=== PATIENT | female | born 1985 | race Caucasian/White ===

== ENCOUNTER 2017-11-25 11:58 | Day surgery (SDC) | payer OTHER, MEDICAID, SELFPAY ==
[2017-11-09 16:05] VITALS: BMI 26.6
[2017-11-25] VITALS (7 sets, daily range): BP systolic 96–126; BP diastolic 56–83; PULSE 70–87; RESP 11–18; TEMP 36.3–36.9; O2SAT 91–100; BMI 26.6
[2017-11-25] MEDS: LACTATED RINGERS 1,000 ML 100 ML IV (12:35)
[2017-11-25] MEDS: CEFOTETAN 2 GM/50 ML PIGGYBACK IV (13:52)
--- NOTE | 2017-11-25 14:18 | SUR.OPER ---
Lithotomy on padded OR bed, head on pillow, arms secured on padded arm boards at <90 degrees abduction. Legs secured in padded yellow fins stirrups.
[2017-11-25] MEDS: BUPIVACAINE 0.25% W/ EPI VIAL 50 ML INJ (14:25)
--- NOTE | 2017-11-25 14:34 | PM.GYNOP.1 ---
Procedure: Procedures Operation Date: 11/25/17 13:30 Actual Procedures Side Surgeon p Laparoscopic Tubal Occlusion Bilateral Randy Sampson MD Indications: Multiparity desires sterilization Surgeon: Randy Sampson Anesthesia Type: General Operative Notes Findings: Normal uterus tubes and ovaries Closure Type: primary Specimen(s): none Estimated blood loss (mL): 25 Blood products transfused: none Procedure in detail: Patient was placed supine upon the operating table and anesthetized. She was then placed in the dorsal lithotomy position and examined under anesthesia. Under anesthesia she is felt to have an anterior uterus no masses all of any kind. Patient was draped. Usual fashion. Speculum was set in place and the anterior lip of the cervix grasped with a toothed tenaculum. The dolphin-nose forceps was used to removed the Mirena IUD. The uterine cervix calibrated to Hegar 8. And a Zumi insufflation cannula was placed without difficulty. The tenaculum and speculum removed. Closer changed. Attention was turned to the abdomen. Approximately 10 cc of 0.25% Marcaine and 1 to [id number] epinephrine were injected into the umbilicus. A sharp knife incision was made. The Veress needle was placed 3rd through. Approximately 5.5 L of carbon dioxide gas were insufflated to a final resting pressure of 15 cm of water. The Veress needle was withdrawn and a [address]. The laparoscoped was placed there through. Patient had normal uterus normal tubes and ovaries. The right tube was grasped at the isthmic ampullary junction infiltrated in three places with through and through urbano two infinite impedance. Similar procedure was performed on the left side. No bleeding points were seen. All carbon dioxide gas was allowed to exit the abdomen. The incision was closed with a deep 0 Vicryl and then with a running horizontal mattress three 0 Vicryl. Skin was further approximated with Steri-Strips. The Zumi insufflation cannula was removed. The patient was taken to the recovery room in satisfactory condition. Complications: none Post-operative Condition: stable Disposition: PACU Plan for aftercare: Chart to home
--- NOTE | 2017-11-25 14:39 | P.OP_ITS ---
Procedure: Procedures Operation Date: 11/25/17 13:30 Actual Procedures Side Surgeon p Laparoscopic Tubal Occlusion Bilateral Randy Sampson MD Indications: Multiparity desires sterilization Surgeon: Randy Sampson Anesthesia Type: General Operative Notes Findings: Normal uterus tubes and ovaries Closure Type: primary Specimen(s): none Estimated blood loss (mL): 25 Blood products transfused: none Procedure in detail: Patient was placed supine upon the operating table and anesthetized. She was then placed in the dorsal lithotomy position and examined under anesthesia. Under anesthesia she is felt to have an anterior uterus no masses all of any kind. Patient was draped. Usual fashion. Speculum was set in place and the anterior lip of the cervix grasped with a toothed tenaculum. The dolphin-nose forceps was used to removed the Mirena IUD. The uterine cervix calibrated to Hegar 8. And a Zumi insufflation cannula was placed without difficulty. The tenaculum and speculum removed. Closer changed. Attention was turned to the abdomen. Approximately 10 cc of 0.25% Marcaine and 1 to [id number] epinephrine were injected into the umbilicus. A sharp knife incision was made. The Veress needle was placed 3rd through. Approximately 5.5 L of carbon dioxide gas were insufflated to a final resting pressure of 15 cm of water. The Veress needle was withdrawn and a 12 [address] and [address]. The laparoscoped was placed there through. Patient had normal uterus normal tubes and ovaries. The right tube was grasped at the isthmic ampullary junction infiltrated in three places with through and through urbano two infinite impedance. Similar procedure was performed on the left side. No bleeding points were seen. All carbon dioxide gas was allowed to exit the abdomen. The incision was closed with a deep 0 Vicryl and then with a running horizontal mattress three 0 Vicryl. Skin was further approximated with Steri- Strips. The Zumi insufflation cannula was removed. The patient was taken to the recovery room in satisfactory condition. Complications: none Post-operative Condition: stable Disposition: PACU Plan for aftercare: Chart to home
[2017-11-25] MEDS: OXYCODONE/ACETAMINOPHEN 5/325 TABLET 1 TAB PO (14:59)
[2017-11-25] MEDS: HYDROMORPHONE 2 MG INJ 0.5 MG IV (15:00)
== END 2017-11-25 15:32 | disposition home or self-care (01) ==
PROC: (CPT 58671; principal; 2017-11-25 13:30)
DX: Z30.2 Encounter for sterilization (principal); Z87.891 Personal history of nicotine dependence; F41.9 Anxiety disorder, unspecified
CPT/HCPCS: 58670; J0330; J1100; J1170; J2250; J2405; J2704; J3010

== ENCOUNTER 2017-12-30 09:31 | Emergency (ER) | payer OTHER, MEDICAID, SELFPAY ==
[2017-12-30 09:35] VITALS: BP 129/64; PULSE 83; RESP 20; TEMP 36.1; O2SAT 100
[2017-12-30] MEDS: ONDANSETRON 4 MG/2 ML INJ IV (09:56)
[2017-12-30] MEDS: PANTOPRAZOLE 40 MG VIAL IV (09:56)
[2017-12-30] MEDS: SODIUM CHLORIDE 0.9% 1,000 ML 1000 ML IV ×2 (09:56→10:52)
[2017-12-30 09:59] LABS: Add Manual Diff / Slide Review NO; Basophils Percent Auto 0.4 % (0-2); Eosinophils Percent Auto 0.1 % (2-4); Hematocrit 43.9 % (36-46); Hemoglobin 14.8 g/dL (12.0-16.0); Lymphocytes Percent Auto 9.2 % (25-40); Mean Corpuscular HGB Conc 33.7 % (30-36); Mean Corpuscular Hemoglobin 31.6 PG (26-34); Mean Corpuscular Volume 93.7 fL (80-100); Monocytes Percent Auto 3.3 % (3-14); Neutrophils Absolute Auto 9700 /uL (3000-5900); Platelet Count 204 X10^3/uL (150-400); Red Blood Cell Count 4.68 X10^6/uL (4.0-5.2); Red Cell Distribution Width 12.8 % (11.6-14.8); White Blood Cell Count 11.1 X10^3/uL (4.5-11.0)
[2017-12-30 10:13] LABS: Alanine Aminotransferase 49 IU/L (9-52); Albumin Globulin Ratio 1.5 (1.0-2.8); Alkaline Phosphatase 51 U/L (38-126); Aspartate Aminotransferase 61 IU/L (14-36); BUN Creatinine Ratio 28.3 (6-22); Bilirubin Total 0.5 mg/dL (0.2-1.3); Blood Urea Nitrogen 17 mg/dL (7-17); Calcium 9.5 mg/dL (8.4-10.2); Carbon Dioxide 19 mmol/L (22-32); Chloride 107 mmol/L (98-107); Estimated Glomerular Filt Rate > 60.0 mL/min (>60); Globulin 3.3 g/dL (1.7-4.1); Glucose 57 mg/dL (70-100); HEMOLYSIS < 15 (0-50); Potassium 3.9 mmol/L (3.4-5.1); Sodium 148 mmol/L (137-145); Total Protein 8.3 g/dL (6.3-8.2)
[2017-12-30] MEDS: DEXTROSE 50 % IN WATER 25 GM/50 ML SYRINGE IV (10:26)
[2017-12-30 10:43] VITALS: BP 93/48; PULSE 73; RESP 16; O2SAT 100
--- NOTE | 2017-12-30 10:51 | ED_ITS ---
HPI - Nausea/Vomiting/Diarrhea General Chief complaint: Nausea/Vomiting/Diarrhea Stated complaint: Vomiting Time Seen by Provider: 12/30/17 09:32 Source: patient and EMS Mode of arrival: EMS Limitations: no limitations History of Present Illness HPI Narrative: 32-year-old female, former smoker with history of neurofibromatosis presents to the emergency department by EMS for evaluation of nausea, vomiting and abdominal pain after heavy alcohol consumption last night. She denies any fever or chills. She denies any diarrhea. She denies any blood in her vomit. She does not routinely drink and had significantly more last night in which she is used to. MD complaint: nausea, vomiting and abdominal pain Onset (ago): hour(s) Description of Vomiting: food contents Description of Diarrhea: none Associated Abdominal Pain: Yes Location of pain: epigastric Quality: cramping Pain Consistency: constant Relieving factors: none Exacerbating factors: none Context: alcohol abuse Associated symptoms: loss of appetite and nausea/vomiting Related Data Home Medications Medication Instructions Recorded Confirmed malathion 1 applic TOPICAL DIRECTED 11/09/17 11/21/17 beclomethasone dipropionate 80 mcg INHALATION BID 11/21/17 11/21/17 mcg/actuation aerosol inhaler Previous Rx's Medication Instructions Recorded albuterol sulfate HFA 90 1 puff INHALATION Q4-6H PRN #18 09/16/17 mcg/actuation aerosol inhaler gram oxycodone-acetaminophen [Percocet] 2 tab PO Q4-6H PRN #20 tab 11/25/17 Allergies Allergy/AdvReac Type Severity Reaction Status Date / Time No Known Drug Allergies Allergy Verified 11/25/17 12:22 Review of Systems Review of Systems All systems reviewed & are unremarkable except as noted in HPI and below Constitutional Denies chills, Denies fever(s), Denies lethargy and Denies weakness Eyes Denies change in vision, Denies eye discharge, Denies irritation and Denies loss of vision ENT Ears, Nose, Mouth, and Throat: Denies change in voice, Denies neck pain and Denies sore throat Cardiovascular Denies chest pain, Denies irregular heart rhythm, Denies lightheadedness, Denies palpitations, Denies dyspnea, Denies dyspnea on exertion and Denies orthopnea Respiratory Denies cough, Denies dyspnea, Denies dyspnea on exertion and Denies wheezing Gastrointestinal Gastrointestinal: Reports abdominal pain, Denies change in bowel habits, Denies diarrhea, Reports nausea and Reports vomiting Genitourinary Denies hematuria, Denies flank pain, Denies urinary incontinence and Denies urinary urgency Musculoskeletal Denies neck pain Integumentary/Breasts Denies pruritus, Denies erythema, Denies rash and Denies wounds Neurologic Denies confusion, Denies loss of vision and Denies weakness Psychiatric Denies anxiety, Denies confusion, Denies depression, Denies homicidal ideation and Denies suicidal ideation Endocrine Denies palpitations Hematologic/Lymphatic Denies easy bruising Allergic/Immunologic Denies wheezing [facility] Medical History Anxiety (Acute) 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) History of headache (Acute) Hypertension during (Acute) IUD (intrauterine device) in place (Acute) Recurrent sinus infections (Acute) Asthma (Chronic) Chronic headaches (Chronic) Neurofibromatosis, type 1 (Chronic) Gestational hypertension (Resolved) Schwannoma (Resolved) Surgical History History of incision and drainage (Acute) History of surgery (Resolved ~1991) History of surgery (Resolved ~1989) History of surgery (Resolved ~1998) History of surgery (Resolved ~1999) History of surgery (Resolved 2010) History of surgical procedure on mouth (Resolved ~1993) Family History Mother Hypertension Social History household members: significant other Smoking Status: Former smoker Exam Narrative Exam Narrative: 32-year-old female, obviously uncomfortable, clutching her upper abdomen Initial Vital Signs Initial Vital Signs: Vital Signs Temperature 97.0 F L 12/30/17 09:35 Pulse Rate 83 12/30/17 09:35 Respiratory Rate 20 12/30/17 09:35 Blood Pressure 129/64 12/30/17 09:35 Pulse Oximetry 100 12/30/17 09:35 Const General: cooperative, well developed and acute distress Nutritional Appearance: well nourished Orientation: alert, awake, oriented x3 and not confused HENMT Head: normocephalic and atraumatic Ears: external ears normal and TM's normal bilaterally Nose: external nose normal and No nasal discharge Face and sinus: sinuses nontender, face symmetric, no sinus tenderness and No dry mucous membranes Mouth: oral mucosae normal and moist mucous membranes Teeth and gingiva: dentition normal Throat: tonsils normal and uvula midline Eyes General: appearance normal, both eyes and all related structures Eyelids: eyelids normal Conjunctivae: conjunctivae normal Sclera: sclerae normal Pupils: PERRL EOM: EOM intact bilaterally Neck Neck: normal visual inspection, trachea midline, No lymphadenopathy, No midline deformity and No JVD Lymphatic: No lymphedema Chest Chest: normal inspection of the chest Resp Effort & Inspection: normal respiratory effort, able to speak in complete sentences, no respiratory distress and no use of accessory muscles Auscultation: clear to auscultation bilaterally, no rales, no rhonchi and no wheezes Cardio Rate: regular rate Rhythm: regular rhythm Heart Sounds: no click, no gallops, no murmurs and no rubs Pulses: normal peripheral pulses GI Inspection: non-distended Palpation: soft, no hepatosplenomegaly, No guarding, No pulsatile mass and tender (To palpation in epigastrium) Auscultation: normal bowel sounds Back/Spine/Pelvis Back: No CVA tenderness Cervical Spine: cervical ROM normal and No pain with cervical ROM Thoracic/Lumbar Spine: thoracic and lumbar spine normal to inspection Skin General: no rashes or lesions noted, No jaundice and No petechiae Neuro General: alert, oriented x3, gait normal and no focal motor deficits Speech: speech normal Extrem General: full ROM, no clubbing, cyanosis or edema, no pedal edema and no calf tenderness Psych Appearance: well kempt Mental Status: mental status grossly normal Attitude: cooperative Thought Content: normal and suicidality Judgment: judgment good Course Course Narrative: Patient feeling tremendous improvement after above-stated therapies. Orders Ordered: ED Orders 12/30/17 09:45 Complete Blood Count AUTO DIFF Stat Comprehensive Metabolic Panel Stat Sodium Chloride (Normal Saline 0.9%) 1,000 mls @ 1,000 mls/hr IV BOLUS ONE Stop: 12/30/17 11:50 Last Admin: 12/30/17 10:52 Dose: 1,000 mls/hr Discontinued Medications Dextrose (D50w) 12.5 gm IV NOW ONE Stop: 12/30/17 10:25 Last Admin: 12/30/17 10:26 Dose: 12.5 gm Sodium Chloride (Normal Saline 0.9%) 1,000 mls @ 1,000 mls/hr IV BOLUS ONE Stop: 12/30/17 10:43 Last Infusion: 12/30/17 10:46 Dose: 0 mls/hr Admin: 12/30/17 09:56 Dose: 1,000 mls/hr Ondansetron HCl (Zofran) 4 mg IV NOW ONE Stop: 12/30/17 09:45 Last Admin: 12/30/17 09:56 Dose: 4 mg Pantoprazole Sodium (Protonix) 40 mg IV NOW ONE Stop: 12/30/17 09:45 Last Admin: 12/30/17 09:56 Dose: 40 mg Vital Signs - 8 hr 12/30/17 09:35 12/30/17 10:43 Temperature 97.0 F L Pulse Rate 83 73 Respiratory Rate 20 16 Blood Pressure 129/64 Blood Pressure [Right Arm] 93/48 L Pulse Oximetry 100 100 MDM - Nausea/Vomiting/Diarrhea Differential Diagnosis Likely drug-induced nausea and vomiting and dehydration Medical Records Attestation: I reviewed the patient's medical records. Lab Data Attestation: I reviewed the patient's lab results. Result diagrams: 12/30/17 09:45 12/30/17 09:45 Lab Results 12/30/17 12/30/17 Range/Units 09:45 09:45 WBC 11.1 H (4.5-11.0) X10^3/uL RBC 4.68 (4.0-5.2) X10^6/uL Hgb 14.8 (12.0-16.0) g/dL Hct 43.9 (36-46) % MCV 93.7 (80-100) fL MCH 31.6 (26-34) PG MCHC 33.7 (30-36) % RDW 12.8 (11.6-14.8) % Plt Count 204 (150-400) X10^3/uL Neut % (Auto) 87.0 H (50-75) % Lymph % (Auto) 9.2 L (25-40) % Grant % (Auto) 3.3 (3-14) % Eos % (Auto) 0.1 L (2-4) % Baso % (Auto) 0.4 (0-2) % Neut # (Auto) 9700 H (6129-0129) /uL Sodium 148 H (137-145) mmol/L Potassium 3.9 (3.4-5.1) mmol/L Chloride 107 (98-107) mmol/L Carbon Dioxide 19 L (22-32) mmol/L BUN 17 (7-17) mg/dL Creatinine 0.60 (0.52-1.04) mg/dL Estimated GFR > 60.0 (>60) mL/min BUN/Creatinine Ratio 28.3 H (6-22) Glucose 57 L (70-100) mg/dL Calcium 9.5 (8.4-10.2) mg/dL Total Bilirubin 0.5 (0.2-1.3) mg/dL AST 61 H (14-36) IU/L ALT 49 (9-52) IU/L Alkaline Phosphatase 51 (38-126) U/L Total Protein 8.3 H (6.3-8.2) g/dL Albumin 5.0 (3.5-5.0) g/dL Globulin 3.3 (1.7-4.1) g/dL Albumin/Globulin Ratio 1.5 (1.0-2.8) Point of Care Testing Glucose POC 103 Discharge Plan Departure Patient Disposition: Home Clinical Impression: Acute dehydration, Gastritis, Vomiting Instructions: DI for Alcoholic Gastritis Activity Restrictions/Additional Instructions: 1. Drink plenty of fluids with frequent small sips. 2. For the next 24 hours a clear liquid diet is advised. After that please employ a brat diet which would include bananas, rice, apples, toast. 3. Please take medications as directed. Your prescription has been electronically submitted to the [facility] in [place] at your request 4. Please follow-up with your doctor in the next 1-2 days. Call the office for an appointment. 5. Please return to the emergency Department for any worsening or persistent symptoms, such as increasing pain or fever. Prescriptions: No Action albuterol sulfate [Ventolin HFA] 90 mcg/actuation HFA aerosol inhaler 1 puff INHALATION Q4-6H PRN (Reason: shortness of breath or wheezing) Qty: 18 RF: 3 beclomethasone dipropionate 80 mcg/actuation aerosol INHALATION BID RF: 0 malathion 0.5 % Lotion 1 applic TOPICAL DIRECTED RF: 0 oxycodone-acetaminophen [Percocet] 5-325 mg tablet 2 tab PO Q4-6H PRN (Reason: pain) Qty: 20 RF: 0
--- NOTE | 2017-12-30 10:51 | PC.NURSE ---
Ice chips and a 2nd liter of NS
--- NOTE | 2017-12-30 11:36 | PC.NURSE ---
Pt started with ice chips w/o emesis. Had gingerale and crackers without emesis. Will dc home after IV fluids in
[2017-12-30 12:05] VITALS: BP 104/71; PULSE 71; RESP 20; O2SAT 98
== END 2017-12-30 12:06 | disposition home or self-care (01) ==
PROVIDERS: Emergency Provider Emergency Medicine
DX: K29.70 Gastritis, unspecified, without bleeding (principal); E86.0 Dehydration; R11.10 Vomiting, unspecified
CPT/HCPCS: 36591; 80053; 82962; 85025; 96361; 96374; 96375; 99283; 99284; C9113; J2405

== ENCOUNTER → 2018-01-18 13:54 | Outpatient (CLI) | payer OTHER, MEDICAID, SELFPAY | PROVIDERS: Visit Provider Physician Assistant | DX: J36 Peritonsillar abscess (principal) | CPT/HCPCS: 87070; 87077; 87147 ==

== ENCOUNTER 2018-10-22 17:14 | Emergency (ER) | payer OTHER, MEDICAID, SELFPAY ==
[2018-10-22 17:27] VITALS: BP 135/75; PULSE 86; RESP 20; TEMP 36.8; O2SAT 98
[2018-10-22 17:46] LABS: Amorphous Sediment Urine 1+; Bacteria Urine Few (2-10); RBC Urine 10-30/HPF (0-5/HPF); WBC Urine 30-100/HPF (0-5/HPF)
[2018-10-22 17:47] LABS: Culture Indicated Urine Specimen Cultured; Squamous Epithelial Cell Urine 1-5 /HPF (0-5/HPF)
[2018-10-22] MEDS: PHENAZOPYRIDINE 100 MG TABLET 200 MG PO (18:00)
[2018-10-22 18:25] VITALS: BP 124/68; PULSE 81; RESP 16; O2SAT 98
--- NOTE | 2018-10-22 18:41 | ED.FEMALEGU ---
HPI - Female Genitourinary <JENN Briscoe - Last Filed: 10/22/18 19:29> General Chief complaint: Urogenital-Female Stated complaint: thinks she has a UTI Time Seen by Provider: 10/22/18 17:28 Source: patient Mode of arrival: ambulatory Limitations: no limitations History of Present Illness HPI Narrative: This is a 33 year old female, nonsmoker with history of neurofibromaptosis, asthma, gestational hypertension, HSV type 2, s/p BTL present today with symptoms of UTI. She reports onset of dysuria and frequency started one week ago. She reports her urinary symptoms got worse yesterday with burning on urination, frequency, chills, odorous urine, hematuria, suprapubic pain and general not feeling well. She denies fever, back pain, vaginal discharge or lesions. She denies previous UTI during adulthood. Related Data Home Medications Medication Instructions Recorded Confirmed malathion 1 applic TOPICAL DIRECTED 11/09/17 01/18/18 beclomethasone dipropionate 80 mcg INHALATION BID 11/21/17 01/18/18 mcg/actuation aerosol inhaler Previous Rx's Medication Instructions Recorded oxycodone-acetaminophen [Percocet] 2 tab PO Q4-6H PRN #20 tab 11/25/17 albuterol sulfate HFA 90 1 puff INHALATION Q4-6H PRN #18 08/03/18 mcg/actuation aerosol inhaler gram sulfamethoxazole-trimethoprim 1 tab PO BID #10 tab 10/22/18 Allergies Allergy/AdvReac Type Severity Reaction Status Date / Time No Known Drug Allergies Allergy Verified 01/18/18 09:40 Review of Systems <JENN Briscoe - Last Filed: 10/22/18 19:29> Review of Systems GENERAL: See HPI HEENT: Denies sinus pain, ear pain, sore throat, difficulty swallowing, dizziness. RESPIRATORY: Denies dyspnea, cough, wheezing, hemoptysis, sputum. CARDIOVASCULAR: Denies chest pain, palpitations, orthopnea, edema, GASTROINTESTINAL: Denies nausea, vomiting, abdominal pain, diarrhea, constipation, melena. : See HPI MUSCULOSKELETAL: denies weakness, joint pain, or bony pain SKIN: Denies rash, skin lesions, or other NEUROLOGIC: Denies weakness, headache, numbness, change in speech, confusion, seizures, incoordination. PSYCHIATRIC: No concerning psychosocial issues. 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) History of headache (Acute) Hypertension during (Acute) IUD (intrauterine device) in place (Acute) Recurrent sinus infections (Acute) Asthma (Chronic) Chronic headaches (Chronic) Neurofibromatosis, type 1 (Chronic) Gestational hypertension (Resolved) Schwannoma (Resolved) Surgical History History of incision and drainage (Acute) History of surgery (Resolved ~1991) History of surgery (Resolved ~1989) History of surgery (Resolved ~1998) History of surgery (Resolved ~1999) History of surgery (Resolved 2010) History of surgical procedure on mouth (Resolved ~1993) Family History (System 01/18/18 @ 09:40 by Taryn [place]) Mother Hypertension Social History (System 01/18/18 @ 09:40 by Taryn [place]) household members: significant other Smoking Status: Former smoker Family History Mother Hypertension Social History household members: significant other Smoking Status: Former smoker Exam <JENN Briscoe - Last Filed: 10/22/18 19:29> Narrative Exam Narrative: GENERAL: This is a well-nourished, well-developed patient, in mild distress. HEAD: Atraumatic. Normocephalic. No temporal or scalp tenderness. EYES: Pupils equal round and reactive. Extraocular motions intact. No scleral icterus. No injection or drainage. ENT: Nose without bleeding, purulent drainage or septal hematoma. Throat without erythema, tonsillar hypertrophy or exudate. Uvula midline. Airway patent. NECK: Trachea midline. No JVD or lymphadenopathy. Supple, nontender, no meningeal signs. CARDIOVASCULAR: Regular rate and rhythm without murmurs, gallops, or rubs. RESPIRATORY: Clear to auscultation. Breath sounds equal bilaterally. No wheezes, rales, or rhonchi. GASTROINTESTINAL: Abdomen soft, non-tender, nondistended. No hepato-splenomegaly, or palpable masses. No guarding. EXTREMITIES: No clubbing, cyanosis, or edema. No joint tenderness, effusion, or edema noted. BACK: Nontender without deformity or crepitance. No flank tenderness. NEURO: AOx3. SKIN: No rash or erythema. Initial Vital Signs Initial Vital Signs: Vital Signs Temperature 98.2 F 10/22/18 17:27 Pulse Rate 86 10/22/18 17:27 Respiratory Rate 20 10/22/18 17:27 Blood Pressure 135/75 10/22/18 17:27 Pulse Oximetry 98 10/22/18 17:27 <Christy Headley DO - Last Filed: 10/23/18 02:33> Initial Vital Signs Initial Vital Signs: Vital Signs Temperature 98.2 F 10/22/18 17:27 Pulse Rate 86 10/22/18 17:27 Respiratory Rate 20 10/22/18 17:27 Blood Pressure 135/75 10/22/18 17:27 Pulse Oximetry 98 10/22/18 17:27 Course <JENN Briscoe - Last Filed: 10/22/18 19:29> Orders Ordered: Discontinued Medications Phenazopyridine HCl (Pyridium) 200 mg PO NOW ONE Stop: 10/22/18 17:55 Last Admin: 10/22/18 18:00 Dose: 200 mg Trimethoprim/Sulfamethoxazole (Bactrim Ds) 1 tab PO NOW ONE Stop: 10/22/18 18:45 Last Admin: 10/22/18 18:48 Dose: 1 tab Vital Signs - 8 hr 10/22/18 17:27 10/22/18 18:25 Temperature 98.2 F Pulse Rate 86 81 Respiratory Rate 20 16 Blood Pressure 135/75 Blood Pressure [Left Arm] 124/68 Pulse Oximetry 98 98 <Christy Headley DO - Last Filed: 10/23/18 02:33> Orders Ordered: Discontinued Medications Phenazopyridine HCl (Pyridium) 200 mg PO NOW ONE Stop: 10/22/18 17:55 Last Admin: 10/22/18 18:00 Dose: 200 mg Trimethoprim/Sulfamethoxazole (Bactrim Ds) 1 tab PO NOW ONE Stop: 10/22/18 18:45 Last Admin: 10/22/18 18:48 Dose: 1 tab Vital Signs - 8 hr 10/22/18 17:27 10/22/18 18:25 Temperature 98.2 F Pulse Rate 86 81 Respiratory Rate 20 16 Blood Pressure 135/75 Blood Pressure [Left Arm] 124/68 Pulse Oximetry 98 98 MDM - Female Genitourinary <MICHEAL Briscoe-BC - Last Filed: 10/22/18 19:29> Lab Data Lab Results 10/22/18 Range/Units 17:31 Urine RBC 10-30/hpf H (0-5/HPF) Urine WBC 30-100/hpf H (0-5/HPF) Ur Squamous Epith Cells 1-5 /hpf (0-5/HPF) Amorphous Sediment 1+ Urine Bacteria Few (2-10) H (None) Ur Culture Indicated? Specimen cultured Urine Dip Bedside Urine Glucose Negative Bedside Urine Bilirubin - Negative Bedside Urine Ketone - Negative Urine Specific [place] 1.025 Bedside Urine Occult Blood + Bedside Urine Protein +/- 15 Bedside Urine Urobilinogen +/- 1mg Bedside Urine Nitrite - Negative Bedside Urine Leukocytes + 70 Esterase MDM Narrative Medical decision making narrative: The patient's urine shows blood, protein, leukocytes. Microscopic tests shows RBC, WBC and few bacteria. Urine culture is pending. The patient denies flank pain, fever, vomiting. She has history of bilateral tubal ligation and denies signs of vaginal infection. Pt was medicated with Pyridium for urinary discomfort here in ER. Since this is her first UTI during adulthood, will treat her as uncomplicated UTI with Septra. We discussed about worsening symptoms and signs of kidney infection such as nausea, vomiting, flank pain, fever. The patient was instructed to f/u with PCP in a few days and to return to ER with worsening symptoms. The patient was also to take OTC Tyelenol or Ibuprofen for discomfort or fever as needed. <Christy Headley DO - Last Filed: 10/23/18 02:33> Lab Data Lab Results 10/22/18 Range/Units 17:31 Urine RBC 10-30/hpf H (0-5/HPF) Urine WBC 30-100/hpf H (0-5/HPF) Ur Squamous Epith Cells 1-5 /hpf (0-5/HPF) Amorphous Sediment 1+ Urine Bacteria Few (2-10) H (None) Ur Culture Indicated? Specimen cultured Urine Dip Bedside Urine Glucose Negative Bedside Urine Bilirubin - Negative Bedside Urine Ketone - Negative Urine Specific [place] 1.025 Bedside Urine Occult Blood + Bedside Urine Protein +/- 15 Bedside Urine Urobilinogen +/- 1mg Bedside Urine Nitrite - Negative Bedside Urine Leukocytes + 70 Esterase Discharge Plan Departure Patient Disposition: Home Clinical Impression: Urinary tract infection Qualifiers: Urinary tract infection type: site unspecified Hematuria presence: with hematuria Qualified Code(s): N39.0 - Urinary tract infection, site not specified Discharge Date/Time: 10/22/18 19:06 Interventions: ED Discharge Assessment Last Done: 10/22/18 19:06 Instructions: DI for Urinary Tract Infection (UTI) Activity Restrictions/Additional Instructions: Your urine today suspicious for urinary tract infection. We have a urine culture pending. Results will take 48-72 hours. Please monitor for fever, inability keep down fluids etc. Please follow up with primary care provider. Please come back to the ER for any acute concerns. Prescriptions: New sulfamethoxazole-trimethoprim 800-160 mg tablet 1 tab PO BID Qty: 10 RF: 0 No Action albuterol sulfate [Ventolin HFA] 90 mcg/actuation HFA aerosol inhaler 1 puff INHALATION Q4-6H PRN (Reason: shortness of breath or wheezing) Qty: 18 RF: 0 beclomethasone dipropionate 80 mcg/actuation aerosol INHALATION BID RF: 0 malathion 0.5 % Lotion 1 applic TOPICAL DIRECTED RF: 0 oxycodone-acetaminophen [Percocet] 5-325 mg tablet 2 tab PO Q4-6H PRN (Reason: pain) Qty: 20 RF: 0 <Christy Headley, - Last Filed: 10/23/18 02:33> [place] [facility] Attending Sam Attestation: I was immediately available in the department for consultation. Documentation has been reviewed. I agree with assessment and plan.
[2018-10-22] MEDS: TRIMETH/SULFA 160/800 (DS) TABLET 1 TAB PO (18:48)
--- NOTE | 2018-10-22 18:49 | PC.NURSE ---
Patient eating crackers and drinking juice. Medicated with first dose antibiotics per verbal order. Awaiting dispo.
== END 2018-10-22 19:06 | disposition home or self-care (01) ==
PROVIDERS: Emergency Provider Nurse Practitioner Family
DX: N39.0 Urinary tract infection, site not specified (principal)
CPT/HCPCS: 81003; 81015; 87086; 99282; 99283

== ENCOUNTER → 2019-02-13 14:39 | Outpatient (CLI) | payer OTHER, MEDICAID, SELFPAY ==
[2019-02-13 16:20] LABS: HIV 1 & 2 Ab/Ag 4th Gen Combo NEGATIVE (NEGATIVE); Hep C Virus Ab w/Reflex Quant NEGATIVE s/c (NEGATIVE)
[2019-02-15 15:10] LABS: HSV 1 IgM Screen Negative (Negative); HSV 2 IgM Screen Negative (Negative)
[2019-02-15 19:37] LABS: RPR Screen Nonreactive (Nonreactive)
== END ==
PROVIDERS: Family Provider Family Medicine
DX: Z11.3 Encounter for screening for infections with a predominantly sexual mode of transmission (principal)
CPT/HCPCS: 36415; 86592; 86695; 86696; 86803; 87389

== ENCOUNTER 2021-08-28 17:54 | Emergency (ER) | payer OTHER, MEDICAID, SELFPAY ==
[2021-08-28 17:55] VITALS: BP 167/70; PULSE 60; RESP 16; TEMP 36.4; O2SAT 100; BMI 28.3
--- NOTE | 2021-08-28 18:06 | PC.NURSE ---
Patient speaking in full sentences. Using rescue inhaler more frequent. Sudden onset of SOB in last 30 min. Resp even and unlabored
--- NOTE | 2021-08-28 18:55 | DI.RAD.S_ITS ---
PROCEDURE: XR CHEST 2V INDICATIONS: SOB, wheezing, asthma TECHNIQUE: 2 views of the chest were acquired. COMPARISON: Located Within [facility], , CHEST 2 VIEW, 07/01/2014, 11:25. FINDINGS: Surgical changes and devices: None. Lungs and pleura: Increased bronchovascular markings in bilateral hilar region are seen with mild bronchial wall thickening. No definite focal infiltrate. No pleural effusions or pneumothorax. Mediastinum: Mediastinal contours are normal. Heart size is normal. Bones and chest wall: No suspicious bony abnormalities. Soft tissues appear unremarkable. IMPRESSION: Finding is suggestive of reactive airway disease such as bronchitis or asthma. No focal infiltrate, pleural effusion or pneumothorax. Dictated by: Humble Mendez M.D. on 08/28/2021 at 19:15 Approved by: Humble Mendez M.D. on 08/28/2021 at 19:20
== END 2021-08-28 21:50 | disposition left against medical advice (07) ==
PROVIDERS: Emergency Provider Emergency Medicine; Family Provider Family Medicine; PCP Nurse Practitioner Family
DX: R06.02 Shortness of breath (principal)
CPT/HCPCS: 71046; 99281

== ENCOUNTER → 2022-09-01 09:59 | Outpatient (CLI) | payer OTHER, MEDICAID, SELFPAY ==
[2022-09-01 11:21] LABS: Hematocrit 39.8 % (36-46); Hemoglobin 13.5 g/dL (12.0-16.0); Mean Corpuscular HGB Conc 33.9 % (30-36); Mean Corpuscular Hemoglobin 30.8 PG (26-34); Mean Corpuscular Volume 90.8 fL (80-100); Platelet Count 204 X10^3/uL (150-400); Red Blood Cell Count 4.38 X10^6/uL (4.0-5.2); Red Cell Distribution Width 13.1 % (11.6-14.8); White Blood Cell Count 4.4 X10^3/uL (4.5-11.0)
[2022-09-01 11:55] LABS: Alanine Aminotransferase 20 IU/L (<35); Albumin 4.3 g/dL (3.5-5.0); Albumin Globulin Ratio 1.3 (1.0-2.8); Alkaline Phosphatase 45 U/L (38-126); Aspartate Aminotransferase 25 IU/L (14-36); BUN Creatinine Ratio 24.1 (6-22); Bilirubin Total 0.3 mg/dL (0.2-1.3); Blood Urea Nitrogen 13 mg/dL (7-17); Carbon Dioxide 26 mmol/L (22-32); Chloride 102 mmol/L (98-107); Cholesterol 194 mg/dL (140-199); Estimated Glomerular Filt Rate > 60 mL/min (>60); Globulin 3.2 g/dL (1.7-4.1); Glucose 97 mg/dL (70-100); HDL Cholesterol 73 mg/dL (40-60); HEMOLYSIS < 15 (0-50); LDL Cholesterol Calculated 110 mg/dL (<100); Potassium 4.3 mmol/L (3.4-5.1); Sodium 136 mmol/L (137-145); Total Protein 7.5 g/dL (6.3-8.2); Triglycerides 55 mg/dL (35-150)
[2022-09-01 12:24] LABS: TSH w/ Reflex to FT4 0.43 uIU/mL (0.47-4.68)
[2022-09-01 12:52] LABS: Free T4, Direct Thyroxine 0.89 ng/dL (0.78-2.19)
[2022-09-01 13:03] LABS: Urine Chlamydia NOT DETECTED; Urine N gonorrhoeae NOT DETECTED
[2022-09-02 10:37] LABS: HSV Type 1 AB, IgG <0.91 index (0.00-0.90)
[2022-09-02 11:14] LABS: RPR Screen Non Reactive (Non Reactive)
[2022-09-02 18:42] LABS: Hepatitis B Core AB w/Reflex Negative (Negative)
[2022-09-02 21:48] LABS: Hepatitis B Surface Antigen NEGATIVE s/c (NEGATIVE)
[2022-09-02 22:03] LABS: HIV 1 & 2 Ab/Ag 4th Gen Combo NEGATIVE (NEGATIVE); Hep C Virus Ab w/Reflex Quant NEGATIVE s/c (NEGATIVE)
== END ==
PROVIDERS: Family Provider Family Medicine; PCP Registered Nurse Diabetes Educator; Referring Provider Registered Nurse Diabetes Educator; Visit Provider Registered Nurse Diabetes Educator
DX: Z00.00 Encounter for general adult medical examination without abnormal findings (principal); Z20.2 Contact with and (suspected) exposure to infections with a predominantly sexual mode of transmission
CPT/HCPCS: 36415; 80053; 80061; 84439; 84443; 85027; 86592; 86695; 86696; 86704; 86803; 87340; 87389; 87491; 87591

== ENCOUNTER → 2024-03-01 11:33 | Outpatient (CLI) | payer OTHER, MEDICAID, SELFPAY ==
[2024-03-01 12:27] LABS: Hematocrit 41.1 % (36-46); Hemoglobin 13.6 g/dL (12.0-16.0); Mean Corpuscular HGB Conc 33.2 % (30-36); Mean Corpuscular Hemoglobin 30.2 PG (26-34); Platelet Count 204 X10^3/uL (150-400); Red Blood Cell Count 4.51 X10^6/uL (4.0-5.2); Red Cell Distribution Width 13.2 % (11.6-14.8); White Blood Cell Count 4.2 X10^3/uL (4.5-11.0)
[2024-03-01 12:46] LABS: Alanine Aminotransferase 16 IU/L (<35); Albumin 4.6 g/dL (3.5-5.0); Albumin Globulin Ratio 1.6 (1.0-2.8); Alkaline Phosphatase 47 U/L (38-126); Aspartate Aminotransferase 24 IU/L (14-36); BUN Creatinine Ratio 26.2 (6-22); Bilirubin Total 0.4 mg/dL (0.2-1.3); Blood Urea Nitrogen 16 mg/dL (7-17); Calcium 9.5 mg/dL (8.4-10.2); Carbon Dioxide 23 mmol/L (22-32); Chloride 105 mmol/L (98-107); Cholesterol 207 mg/dL (140-199); Estimated Glomerular Filt Rate > 60 mL/min (>60); Globulin 2.8 g/dL (1.7-4.1); Glucose 96 mg/dL (70-100); HDL Cholesterol 90 mg/dL (40-60); HEMOLYSIS < 15 (0-50); LDL Cholesterol Calculated 106 mg/dL (<100); Potassium 4.4 mmol/L (3.4-5.1); Sodium 135 mmol/L (137-145); Total Protein 7.4 g/dL (6.3-8.2); Triglycerides 53 mg/dL (35-150)
[2024-03-01 13:02] LABS: Free T4, Direct Thyroxine 0.71 ng/dL (0.78-2.19)
[2024-03-01 13:16] LABS: Thyroid Stimulating Hormone 0.504 uIU/mL (0.47-4.68)
[2024-03-01 14:44] LABS: Urine N gonorrhoeae NOT DETECTED
[2024-03-01 14:55] LABS: Urine Chlamydia NOT DETECTED
[2024-03-01 15:11] LABS: Hepatitis B Surface Antigen NEGATIVE s/c (NEGATIVE)
[2024-03-01 15:18] LABS: HIV 1 & 2 Ab/Ag 4th Gen Combo NEGATIVE (NEGATIVE); Hep C Virus Ab w/Reflex Quant NEGATIVE s/c (NEGATIVE)
[2024-03-02 04:37] LABS: RPR Screen Non Reactive (Non Reactive)
[2024-03-02 07:11] LABS: Triiodothyronine T3 Total 96 ng/dL (71-180)
== END ==
LOC: LAB 11:36
PROVIDERS: Family Provider Family Medicine; PCP Registered Nurse Diabetes Educator; Referring Provider Registered Nurse Diabetes Educator; Visit Provider Registered Nurse Diabetes Educator
DX: Z00.00 Encounter for general adult medical examination without abnormal findings (principal); R94.6 Abnormal results of thyroid function studies; Z20.2 Contact with and (suspected) exposure to infections with a predominantly sexual mode of transmission; E78.00 Pure hypercholesterolemia, unspecified
CPT/HCPCS: 36415; 80053; 80061; 84439; 84443; 84480; 85027; 86592; 86803; 87340; 87389; 87491; 87591

== ENCOUNTER → 2024-12-19 15:47 | Outpatient (CLI) | payer OTHER, SELFPAY ==
--- NOTE | 2024-12-19 15:49 | DI.MRI.S_ITS ---
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 COMPARISON: None. FINDINGS: Image quality: Excellent. Anterior circulation: Intracranial internal carotid arteries demonstrate normal size and intraluminal flow signal. The flow within the paired anterior cerebral arteries is normal and symmetric. The flow within the middle cerebral arteries is normal and symmetric. The anterior communicating artery is seen. No stenoses, occlusions, or aneurysms. Posterior circulation: Visualized portions of the vertebral arteries demonstrate normal caliber, and join to form a normal appearing basilar artery. The flow within the posterior cerebral arteries is normal and symmetric. No stenoses, occlusions, or aneurysms. There appears to be soft tissue growths involving the subcutaneous tissue of the right periorbital region, not completely included in the field of view. IMPRESSION: No significant arterial abnormalities. Approved by: Bobby Gillette M.D. on 12/19/2024 at 16:40
== END ==
LOC: MRI 15:48
PROVIDERS: Family Provider Family Medicine; PCP Registered Nurse Diabetes Educator; Referring Provider Registered Nurse Diabetes Educator; Visit Provider Physician Assistant
DX: Q85.01 Neurofibromatosis, type 1 (principal); K13.79 Other lesions of oral mucosa
CPT/HCPCS: 70544